=== PATIENT | female | born 1980 | race Caucasian/White ===

== ENCOUNTER → 2023-11-19 | Outpatient (CLI) | payer BC ==
--- NOTE | 2023-12-01 09:57 | MM ---
Reason for Exam: Screening (asymptomatic). Last mammogram was performed 2 year(s) and 2 month(s) ago. Patient History: Menarche at age 13. First Full-Term at age 28. Patient has history of breast feeding. Patient used Hormonal Contraceptives for 15 years. Maternal grandmother had breast cancer at or over age 50. Last menstrual period: 11/05/2023 Risk Values: Olga 5 year model risk: 0.8%. NCI Lifetime model risk: 10.8%. Prior Study Comparison: 09/13/2021 Bilateral Screening Mammogram, [facility]. Tissue Density: The breasts are extremely dense, which lowers the sensitivity of mammography. Findings: Analyzed By CAD. The pattern is symmetrical. No significant interval change. No suspicious groups of microcalcifications, spiculated or lobular masses, architectural distortion or other secondary signs of malignancy are mammographically apparent. Overall Assessment: Benign, BI-RAD 2 Management: Screening Mammogram of both breasts in 1 year. A negative mammogram report should not preclude additional follow up of suspicious palpable abnormalities. Patient should continue monthly self breast exam. A clinical breast exam by your physician is recommended on an annual basis and results should be correlated with mammographic findings. Note on Olga scores and lifetime risk: 1. A Olga score greater than 3% is considered moderate risk. If this is the case, consider specialist referral to assess eligibility for a risk reducing agent. 2. If overall lifetime risk for the development of breast cancer is 20% or higher, the patient may qualify for future screening with alternating mammogram and breast MRI. [facility], , 12/01/2023 9:54 AM. Electronically signed and approved by: Jabari Molina D.O. Radiologis
== END | disposition home or self-care (01) ==
LOC: RADMAMWWP 11:34
PROVIDERS: ATTEND Family Medicine
DX: Z12.31 Encounter for screening mammogram for malignant neoplasm of breast
CPT/HCPCS: 77063; 77067

== ENCOUNTER 2023-12-02 20:24 | Emergency (ER) | payer BC ==
[2023-12-02 20:32] VITALS: BP 117/80; PULSE 74; RESP 16; TEMP 97.8
[2023-12-02 21:07] LABS: Basophils % (A) 1 %; Eosinophils # (A) 0.3 k/uL (0-0.7); Eosinophils % (A) 4 %; HCT 38.9 % (34.0-46.0); Lymphocytes # (A) 2.3 k/uL (1.0-4.8); Lymphocytes % (A) 35 %; MCH 32.1 pg (25.0-35.0); MCHC 33.4 g/dL (31.0-37.0); Mean Platelet Volume 6.7; Monocytes # (A) 0.4 k/uL (0-1.0); Monocytes % (A) 7 %; Neutrophils # (A) 3.5 k/uL (1.3-7.7); Neutrophils % (A) 53 %; Platelet Count 317 k/uL (150-450); RBC 4.05 m/uL (3.80-5.40); RDW 12.1 % (11.5-15.5); WBC 6.7 k/uL (3.8-10.6)
--- NOTE | 2023-12-02 21:07 | ED ---
General Adult HPI - General Source: patient Mode of arrival: wheelchair Limitations: no limitations <Agnieszka Cruz - Last Filed: 12/02/23 21:07> <Arabella Cohn - Last Filed: 12/03/23 07:23> - General Chief complaint: Neuro Symptoms/Deficit Stated complaint: Numbness,Vision,Dizziness Time Seen by Provider: 12/02/23 21:07 - History of Present Illness Initial comments: Quick note: 43-year-old female presenting with chief complaint of neck pain. Today she was having some numbness and tingling in the bilateral hands feet and face. (Agnieszka Cruz) Patient is a 43-year-old female presenting today for tingling in her hands and feet, right sided neck pain and ear fullness. The patient states that she has had pounding in her right ear that has been on and off going for the last 2 to 3 months. She has seen an ENT and was told to stop drinking less caffeine. Patient states that she did this and this has not changed her symptoms. Over the last few weeks she has noted right sided neck pain. She has seen a chiropractor for this who has done adjustments which patient states momentarily helped the pain however it is persistent. She is attempted a leftover Se[place] without improvement in pain. Additionally attempted home muscle relaxant with brief improvement. 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 States that the symptoms have improved however she has had persistent right sided neck pain. She denies sudden vision change or vision loss, slurred speech, facial numbness, focal weakness or numbness of her extremities, headache, chest pain or shortness of breath, nausea or vomiting. (Arabella Cohn) - Related Data Previous Rx's Medication Instructions Recorded Meclizine [Antivert] 25 mg PO Q8HR PRN #15 tab 12/03/23 tiZANidine HCL [Zanaflex] 2 mg PO Q8HR PRN 3 Days #15 capsule 12/03/23 Allergies Allergy/AdvReac Type Severity Reaction Status Date / Time No Known Allergies Allergy Verified 12/02/23 20:32 Review of Systems ROS Other: All systems not noted in ROS Statement are negative. <Agnieszka Cruz - Last Filed: 12/02/23 21:07> Constitutional: Denies: fever, chills Eyes: Denies: vision change ENT: Reports: other (ear fullness/pounding). Denies: ear pain, throat pain Respiratory: Denies: dyspnea Cardiovascular: Denies: chest pain Gastrointestinal: Denies: abdominal pain, nausea, vomiting Neurological: Reports: paresthesias. Denies: headache, weakness, numbness, vertigo <Arabella - Last Filed: 12/03/23 07:23> ROS Statement: Those systems with pertinent positive or pertinent negative responses have been documented in the HPI. Past Medical History Past Medical History: No Reported History Past Surgical History: No Surgical Hx Reported Past Psychological History: No Psychological Hx Reported Smoking Status: Former smoker, Vaper Past Alcohol Use History: Occasional Past Drug Use History: None Reported <Agnieszka Cruz - Last Filed: 12/02/23 21:07> General Exam Limitations: no limitations <Agnieszka Cruz - Last Filed: 12/02/23 21:07> <Arabella Cohn - Last Filed: 12/03/23 07:23> - General Exam Comments Initial Comments: Visual Physical Exam Vital signs reviewed General: Well-appearing, nontoxic, no acute distress. Head: Normocephalic, atraumatic Eyes: PERRLA, EOMI ENT: Airway patent Chest: Nonlabored breathing Skin: No visual rash, normal skin tone Neuro: Alert and oriented 3 Musculoskeletal: No gross abnormalities (Agnieszka Cruz) PE: CONSTITUTIONAL: No apparent distress, well appearing SKIN: Warm, dry, no jaundice, hives or petechiae EYES: Pupils are equally round, extraocular movements intact without nystagmus, clear conjunctiva, non-icteric sclera HENT: Normocephalic, atraumatic, moist mucus membranes, oropharynx clear without exudates NECK: , Full range of motion, normal appearance, TTP along right lateral neck, no midline TTP, positive helen's sign PULMONARY: Clear to auscultation without wheezes, rhonchi, or rales, normal excursion, no accessory muscle use and no stridor CARDIOVASCULAR: Regular rate, rhythm, normal S1 and S2. No appreciated murmurs, rubs or gallops. Strong radial pulses with intact distal perfusion. No lower extremity edema, no carotid bruits GASTROINTESTINAL: Soft, non-tender, non-distended, no palpable masses, no rebound or guarding. No hepatosplenomegaly MUSCULOSKELETAL: Extremities have no gross deformity, no edema, redness, or swelling. No calf swelling NEUROLOGIC:_a/o x 3, GCS 15, normal mentation and speech. Moves all extremities x 4 without motor or sensory deficit; cranial nerves: II (visual calvert without defects), III, IV and (extraocular movements are intact, pupils are equal with normal reaction to light), V (intact facial sensation and jaw opening), VII (no facial droop), IX and X (normal palate movement, midline uvula, normal voice), XI (symmetrical shoulder shrug and lateral head rotation against resistance), XII (midline tongue protrusion). Motor strength is 5/5 in all extremities. No abnormal movements. Normal muscle tone. Sensation to light touch is intact bilaterally. No cerebellar signs ([id number]-[id number], hvyu-[id number], normal) PSYCHIATRIC:_normal mood and affect, thought process is clear and linear (Arabella Cohn) Course Vital Signs 12/02/23 20:28 Temperature 97.8 F Pulse Rate 74 Respiratory 16 Rate Blood Pressure 117/80 O2 Sat by Pulse 100 Oximetry EKG Findings - EKG Comments: EKG Findings:: Sinus rhythm, rate 75 bpm, SC interval 137 ms, QRS duration 104 ms, QT/QTc 355/3 4 ms, normal axis, P waves appear inverted in lead II however expect this is secondary to lead placement, no ST elevations or depressions, no arrhythmia <Arabella Cohn - Last Filed: 12/03/23 07:23> Medical Decision Making <Agnieszka Cruz - Last Filed: 12/02/23 21:07> - Lab Data Result diagrams: 12/02/23 20:55 12/02/23 20:55 <Arabella Cohn - Last Filed: 12/03/23 07:23> - Medical Decision Making I performed the quick note portion of this visit, electronically signed Agnieszka Cruz PA-C (Agnieszka Cruz) Was pt. sent in by a medical professional or institution ([facility], TRANSITION LEAD, urgent care, hospital, or fci...) When possible be specific @ -No Did you speak to anyone other than the patient for history (EMS, parent, family, police, friend...)? What history was obtained from this source @ -No Did you review nursing and triage notes (agree or disagree)? Why? @Reviewed nursing and triage notes, disagree, patient states that is here for his bilateral hand and feet tingling that has improved, 2 weeks right neck pain pounding in the right ear for 2 to 3 months; chronic vision changes, no acute changes in vision or visual field loss Were old charts reviewed (outside hosp., previous admission, EMS record, old EKG, old radiological studies, urgent care reports/EKG's, fci records)? Report findings @Reviewed old charts, however w/ exception of mammogram, no old charts to review Differential Diagnosis (chest pain, altered mental status, abdominal pain women, abdominal pain men, vaginal bleeding, weakness, fever, dyspnea, syncope, headache, dizziness, GI bleed, back pain, seizure, CVA, palpatations, mental health, musculoskeletal)? Differential diagnosis remains broad however top considerations include BPPV Mnire's disease, otitis media, acoustic neuroma, vertebrobasilar insufficiency vertebral or carotid artery dissection,, hypovolemia, arrhythmia this is not all-inclusive list EKG interpreted by me (3pts min.). @ -As above X-rays interpreted by me (1pt min.). @ -Chest x-ray shows no cardiomegaly or consolidations CT interpreted by me (1pt min.). @ -CT brain and CTA showed no evidence of hemorrhage, mass effect dissection or occlusion U/S interpreted by me (1pt. min.). @ -None done What testing was considered but not performed or refused? (CT, X-rays, U/S, labs)? Why? @ -None What meds were considered but not given or refused? Why? @ -None Did you discuss the management of the patient with other professionals (professionals i.e. , PA, TRANSITION LEAD, lab, RT, psych nurse, social services, curtain cutter, teacher, guest relations officer, case management manager)? Give summary @ -No Was smoking cessation discussed for >3mins.? @ -No Was critical care preformed (if so, how long)? @ -No Were there social determinants of health that impacted care today? How? (Homelessness, low income, unemployed, alcoholism, drug addiction, transportation, low edu. Level, literacy, decrease access to med. care, residential, r ehab)? @ -No Was there de-escalation of care discussed even if they declined (Discuss DNR or withdrawal of care, Hospice)? @ -No What co-morbidities impacted this encounter? (DM, HTN, Smoking, COPD, CAD, Cancer, CVA, ARF, Chemo, Hep., AIDS, mental health diagnosis, sleep apnea, morbid obesity)? @ -None Was patient admitted / discharged? Hospital course, mention meds given and route, prescriptions, significant lab abnormalities, going to OR and other pertinent info. @ -Hospital course discharged- Patient is a 43-year-old female no significant medical history presenting today for tingling in her hands and feet, lightheadedness right-sided neck pain and ear pounding. Unclear if symptoms are related. On assessment patient well appearing and in NAD. HEENT exam shows pearly francis tympanic membrane in the right ear without effusion or bulging TM or masses. Neurologic exam shows no focal neurologic deficits or nystagmus. Neck exam shows no midline TTP, positive helen's test. Remainder of exam reassuring. Given right neck pain lightheadedness/dizziness and ear symptoms CTA will be obtained to ensure no evidence of dissection in addition to CT brain to ensure no evidence of obvious mass or hemorrhage. I suspect patient's neck pain 2/2 cervical radiculopathy. Will also given meclizine, IV fluids. Labs and imaging reviewed. Urinalysis noted Small leukocyte esterase, negative nitrates, 7 white blood cells 6 squamous cells rare bacteria suspect contaminated specimen and do not suspect this is cause of patient's symptoms today. CTA did comment on moderate canal stenosis at C5/6 and right thyroid nodule. Otherwise, Grossly within normal limits. Abnormal values not concerning for acute pathology related to presenting complaint. On reassessment patient states that she has felt better than she has in a long time however her neck pain has worsened. Updated her to CT findings including thyroid nodule. Will try Toradol and Zanaflex. Plan for discharge. Patient will be discharged with meclizine and Zanaflex. She was instructed to follow-up with ENT and neurology regarding ear fullness sensation and symptoms today as well as orthopedics regarding Neck pain and PCP regarding f/u US for thyroid nodule. Patient agreeable with plan. In my medical judgment there is currently no evidence of an immediate life- threatening or surgical condition. Discharge is therefore indicated at this time. Discharge treatment instructions, follow up instructions, and appropriate em ergency department return precautions were discussed with the patient and/or medical decision maker. Patient and/or medical decision maker expressed understanding of and agreed with the treatment plan, follow up instructions, and emergency department return precaution. All patient's and/or medical decision maker's questions were answered. Undiagnosed new problem with uncertain prognosis? @ -No Drug Therapy requiring intensive monitoring for toxicity (Heparin, Nitro, Insulin, Cardizem)? @ -No Were any procedures done? @ -No Diagnosis/symptom? @ -Neck pain, dizziness, thyroid nodule Acute, or Chronic, or Acute on Chronic? @ -Acute Uncomplicated (without systemic symptoms) or Complicated (systemic symptoms)? @ complicated Side effects of treatment? @ -No Exacerbation, Progression, or Severe Exacerbation? @ -No Poses a threat to life or bodily function? How? (Chest pain, [place], [place], pneumonia, PE, COPD, DKA, ARF, appy, cholecystitis, CVA, Diverticulitis, Homicidal, Suicidal, threat to staff... and all critical care pts) @ -No (,Arabella) - Lab Data Lab Results 12/02/23 12/02/23 12/02/23 Range/Units 20:55 20:55 20:55 WBC 6.7 (3.8-10.6) k/uL RBC 4.05 (3.80-5.40) m/uL Hgb 13.0 (11.4-16.0) gm/dL Hct 38.9 (34.0-46.0) % MCV 96.0 (80.0-100.0) fL MCH 32.1 (25.0-35.0) pg MCHC 33.4 (31.0-37.0) g/dL RDW 12.1 (11.5-15.5) % Plt Count 317 (150-450) k/uL MPV 6.7 Neutrophils % 53 % Lymphocytes % 35 % Monocytes % 7 % Eosinophils % 4 % Basophils % 1 % Neutrophils # 3.5 (1.3-7.7) k/uL Lymphocytes # 2.3 (1.0-4.8) k/uL Monocytes # 0.4 (0-1.0) k/uL Eosinophils # 0.3 (0-0.7) k/uL Basophils # 0.0 (0-0.2) k/uL PT 10.2 (10.0-12.5) sec INR 0.9 (<1.2) APTT 25.7 (22.0-30.0) sec Sodium 137 (137-145) mmol/L Potassium 3.9 (3.5-5.1) mmol/L Chloride 104 (98-107) mmol/L Carbon Dioxide 27 (22-30) mmol/L Anion Gap 6 mmol/L BUN 13 (7-17) mg/dL Creatinine 0.85 (0.52-1.04) mg/dL Est GFR (CKD-EPI)AfAm >90 (>60 ml/min/1.73 sqM) Est GFR (CKD-EPI)NonAf 85 (>60 ml/min/1.73 sqM) Glucose 93 (74-99) mg/dL Calcium 9.3 (8.4-10.2) mg/dL Total Bilirubin 0.3 (0.2-1.3) mg/dL AST 25 (14-36) U/L ALT 14 (4-34) U/L Alkaline Phosphatase 44 (38-126) U/L Creatine Kinase 49 (30-135) U/L Troponin I (0.000-0.034) ng/mL Total Protein 7.0 (6.3-8.2) g/dL Albumin 4.6 (3.5-5.0) g/dL Urine Color Urine Appearance (Clear) Urine pH (5.0-8.0) Ur Specific [place] (1.001-1.035) Urine Protein (Negative) Urine Glucose (UA) (Negative) Urine Ketones (Negative) Urine Blood (Negative) Urine Nitrite (Negative) Urine Bilirubin (Negative) Urine Urobilinogen (<2.0) mg/dL Ur Leukocyte Esterase (Negative) Urine RBC (0-5) /hpf Urine WBC (0-5) /hpf Ur Squamous Epith Cells (0-4) /hpf Urine Bacteria (None) /hpf Urine Mucus (None) /hpf 12/02/23 12/02/23 Range/Units 20:55 21:41 WBC (3.8-10.6) k/uL RBC (3.80-5.40) m/uL Hgb (11.4-16.0) gm/dL Hct (34.0-46.0) % MCV (80.0-100.0) fL MCH (25.0-35.0) pg MCHC (31.0-37.0) g/dL RDW (11.5-15.5) % Plt Count (150-450) k/uL MPV Neutrophils % % Lymphocytes % % Monocytes % % Eosinophils % % Basophils % % Neutrophils # (1.3-7.7) k/uL Lymphocytes # (1.0-4.8) k/uL Monocytes # (0-1.0) k/uL Eosinophils # (0-0.7) k/uL Basophils # (0-0.2) k/uL PT (10.0-12.5) sec INR (<1.2) APTT (22.0-30.0) sec Sodium (137-145) mmol/L Potassium (3.5-5.1) mmol/L Chloride (98-107) mmol/L Carbon Dioxide (22-30) mmol/L Anion Gap mmol/L BUN (7-17) mg/dL Creatinine (0.52-1.04) mg/dL Est GFR (CKD-EPI)AfAm (>60 ml/min/1.73 sqM) Est GFR (CKD-EPI)NonAf (>60 ml/min/1.73 sqM) Glucose (74-99) mg/dL Calcium (8.4-10.2) mg/dL Total Bilirubin (0.2-1.3) mg/dL AST (14-36) U/L ALT (4-34) U/L Alkaline Phosphatase (38-126) U/L Creatine Kinase (30-135) U/L Troponin I <0.012 (0.000-0.034) ng/mL Total Protein (6.3-8.2) g/dL Albumin (3.5-5.0) g/dL Urine Color Yellow Urine Appearance Cloudy H (Clear) Urine pH 5.0 (5.0-8.0) Ur Specific [place] 1.016 (1.001-1.035) Urine Protein Negative (Negative) Urine Glucose (UA) Negative (Negative) Urine Ketones Negative (Negative) Urine Blood Negative (Negative) Urine Nitrite Negative (Negative) Urine Bilirubin Negative (Negative) Urine Urobilinogen <2.0 (<2.0) mg/dL Ur Leukocyte Esterase Small H (Negative) Urine RBC 2 (0-5) /hpf Urine WBC 7 H (0-5) /hpf Ur Squamous Epith Cells 6 H (0-4) /hpf Urine Bacteria Rare H (None) /hpf Urine Mucus Rare H (None) /hpf Disposition <Agnieszka Cruz - Last Filed: 12/02/23 21:07> Is patient prescribed a controlled substance at d/c from ED?: No <Arabella - Last Filed: 12/03/23 07:23> Clinical Impression: Neck pain, Thyroid nodule, Sensation of fullness in right ear, Dizziness Disposition: HOME SELF-CARE Condition: Good Instructions (If sedation given, give patient instructions): Meniere Disease (ED), Cervical Radiculopathy (ED), Dizziness (ED) Additional Instructions: Every disease is a spectrum and a small chance still exists that a serious condition could develop, for this reason, please monitor yourself closely for new, changing or worsening symptoms, symptoms that do not improve in the next 48 to 72 hours with prescribed treatments, changes in vision, slurred speech, nu mbness or weakness in your extremities, fever, inability to tolerate/keep down fluids or your medications, inability to follow up with outpatient providers as instructed and should you experience these symptoms or should you have any further concerns for your wellbeing please return to the ED or call 911 immediately. Your pain can be treated with ibuprofen and acetaminophen. You can take up to 4 00-600 mg of ibuprofen (Advil, Motrin) 3 times daily (every 8 hours) but can also use lower doses if this relieves your pain. Some people prefer naproxen (Aleve, Naprosyn) which can be taken in doses of 500 mg up to twice a day. Do not take both of these medicines together, and do not combine either with ketorolac (Toradol), meloxicam (Mobic), or indomethacin (Tivorbex). Some people can develop stomach discomfort with higher doses of either ibuprofen or naproxen, if this develops decrease your dose or stop taking it. If you need to take this dose daily for more than a week, please schedule an appointment for re-evaluation with your PCP. Please take these medications with food. You can take up to 1000 mg of acetaminophen (Tylenol) every 6 hours. Be careful as this is included in some medicines like Nyquil, Seagrove, Percocet, Vicodin, STANBACK, Goody's Powders, and Excedrin. You can also use lidocaine patches for topical pain. You can purchase 4% patches over the counter at most drug stores. These can be helpful for pain from your muscles or bones. Please follow up with orthopedics regarding neck pain. Please follow up with your PCP regarding thyroid nodule. Please follow-up with neurology and ENT regarding ear fullness/pounding PLEASE call your primary care physician as soon as possible to arrange / discuss plan for followup appointment. Appointment in the next 1-3 days is strongly encouraged if possible. PLEASE let us know here before you leave if there is anything further we can do to be of any assistance. Take care and feel Better! Prescriptions: Meclizine [Antivert] 25 mg PO Q8HR PRN #15 tab PRN Reason: Vertigo tiZANidine HCL [Zanaflex] 2 mg PO Q8HR PRN 3 Days #15 capsule PRN Reason: Muscle Spasm Referrals: David Edward MD [Primary Care Provider] - 1-2 days Matt Michelle MD [Medical Doctor] - 1-2 days Jose Martinez MD [STAFF PHYSICIAN] - 1-2 days
[2023-12-02 21:14] LABS: ALT 14 U/L (4-34); AST 25 U/L (14-36); African American GFR (CKD) >90 (>60 ml/min/1.73 sqM); Albumin 4.6 g/dL (3.5-5.0); Alkaline Phosphatase 44 U/L (38-126); Anion Gap 6 mmol/L; Blood Urea Nitrogen 13 mg/dL (7-17); Calcium 9.3 mg/dL (8.4-10.2); Carbon Dioxide 27 mmol/L (22-30); Chloride 104 mmol/L (98-107); Creatine Kinase 49 U/L (30-135); Glucose 93 mg/dL (74-99); INR 0.9 (<1.2); Non-African American GFR(CKD) 85 (>60 ml/min/1.73 sqM); Partial Thromboplastin Time 25.7 sec (22.0-30.0); Potassium 3.9 mmol/L (3.5-5.1); Prothrombin Time 10.2 sec (10.0-12.5); Sodium 137 mmol/L (137-145); Total Bilirubin 0.3 mg/dL (0.2-1.3)
--- NOTE | 2023-12-02 21:35 | XR ---
EXAMINATION TYPE: XR chest 2V DATE OF EXAM: 12/02/2023 9:01 PM CLINICAL INDICATION: Female, 43 years old with history of altered mental status; [facility] COMPARISON: None TECHNIQUE: XR chest 2V Frontal view of the chest. FINDINGS: Lungs/Pleura: There is no evidence of pleural effusion, focal consolidation, or pneumothorax. Pulmonary vascularity: Unremarkable. Heart/mediastinum: Cardiomediastinal silhouette is unremarkable. Musculoskeletal: No acute osseous pathology. IMPRESSION: No acute cardiopulmonary disease/process. [facility], Workstation: [id number], 12/02/2023 9:32 PM
[2023-12-02 22:15] LABS: Appearance,Urine Cloudy (Clear); Bacteria,Urine Rare /hpf; Bilirubin,Urine Negative (Negative); Blood,Urine Negative (Negative); Color,Urine Yellow; Glucose,Urine (UA) Negative (Negative); Ketones,Urine Negative (Negative); Leukocyte Esterase,Urine Small (Negative); Mucus,Urine Rare /hpf; Nitrite,Urine Negative (Negative); Protein,Urine Negative (Negative); RBC,Urine 2 /hpf (0-5); Specific Gravity,Urine 1.016 (1.001-1.035); Squamous Epithelial Cell,Urine 6 /hpf (0-4); Urobilinogen,Urine <2.0 mg/dL (<2.0); WBC,Urine 7 /hpf (0-5)
[2023-12-02] MEDS: SODIUM CHLORIDE 0.9% 1,000 ML IV ONE (22:35)
[2023-12-02] MEDS: MECLIZINE 12.5 MG TAB PO STA (22:36)
--- NOTE | 2023-12-02 22:59 | CT ---
EXAM: CT Head Without Intravenous Contrast CLINICAL HISTORY: ITS.REASON CT Reason: right ear fullness, R. neck pain, dizziness TECHNIQUE: Axial computed tomography images of the head/brain without intravenous contrast. CTDI is 48.8 mGy and DLP is 1108 mGy-cm. This CT exam was performed using one or more of the following dose reduction techniques: automated exposure control, adjustment of the mA and/or kV according to patient size, and/or use of iterative reconstruction technique. COMPARISON: No relevant prior studies available. FINDINGS: Brain: The territorial francis-white matter differentiation is maintained throughout. No acute intracranial hemorrhage. No midline shift or mass effect. Ventricles: The ventricles and sulci are commensurate with age. Bones/joints: Unremarkable. No acute fracture. Soft tissues: Unremarkable. Sinuses: Unremarkable as visualized. No acute sinusitis. Mastoid air cells: Unremarkable as visualized. No mastoid effusion. IMPRESSION: No acute intracranial hemorrhage. No midline shift or mass effect.
--- NOTE | 2023-12-03 00:03 | CT ---
EXAM: CT Angiography Head With Intravenous Contrast CLINICAL HISTORY: ITS.REASON CT Reason: R. neck pain, R. ear fullness, dizzy, vert art dis TECHNIQUE: Axial computed tomographic angiography images of the head with intravenous contrast. CTDI is 14.7 mGy and DLP is 448.2 mGy-cm. This CT exam was performed using one or more of the following dose reduction techniques: automated exposure control, adjustment of the mA and/or kV according to patient size, and/or use of iterative reconstruction technique. MIP reconstructed images were created and reviewed. COMPARISON: No relevant prior studies available. FINDINGS: The dural venous sinuses are patent. There is a small tangle of vessels within the medial right parietal lobe. Right internal carotid artery: No acute findings. Intracranial segment is patent with no significant stenosis. No aneurysm. Right anterior cerebral artery: Unremarkable. No occlusion or significant stenosis. No aneurysm. Right middle cerebral artery: Unremarkable. No occlusion or significant stenosis. No aneurysm. Right posterior cerebral artery: Unremarkable. No occlusion or significant stenosis. No aneurysm. Right vertebral artery: Unremarkable as visualized. Left internal carotid artery: No acute findings. Intracranial segment is patent with no significant stenosis. No aneurysm. Left anterior cerebral artery: Unremarkable. No occlusion or significant stenosis. No aneurysm. Left middle cerebral artery: Unremarkable. No occlusion or significant stenosis. No aneurysm. Left posterior cerebral artery: Unremarkable. No occlusion or significant stenosis. No aneurysm. Left vertebral artery: Unremarkable as visualized. Basilar artery: Unremarkable. No occlusion or significant stenosis. No aneurysm. IMPRESSION: There is a small tingle of vessels within the right parietal lobe concerning for a vascular malformation. EXAM: CT Angiography Neck With Intravenous Contrast CLINICAL HISTORY: ITS.REASON CT Reason: R. neck pain, R. ear fullness, dizzy, vert art dis TECHNIQUE: Routine carotid CT angiography protocol was performed with intravenous contrast. NASCET criteria using the distal ICAs for comparison were used for evaluation of stenoses. CTDI is 14.4 mGy and DLP is 448.2 mGy-cm. This CT exam was performed using one or more of the following dose reduction techniques: automated exposure control, adjustment of the mA and/or kV according to patient size, and/or use of iterative reconstruction technique. MIP reconstructed images were created and reviewed. COMPARISON: None. FINDINGS: VASCULATURE: Right common carotid artery: Unremarkable. No occlusion or significant stenosis. No dissection. Right internal carotid artery: Unremarkable. Extracranial segment is patent with no occlusion or significant stenosis. No dissection. Right external carotid artery: Unremarkable. No occlusion. Right vertebral artery: Unremarkable. No occlusion or significant stenosis. No dissection. Left common carotid artery: Unremarkable. No occlusion or significant stenosis. No dissection. Left internal carotid artery: Unremarkable. Extracranial segment is patent with no occlusion or significant stenosis. No dissection. Left external carotid artery: Unremarkable. No occlusion. Left vertebral artery: Unremarkable. No occlusion or significant stenosis. No dissection. NECK: Bones/joints: There is moderate spinal canal stenosis at C5-6. No acute fracture. Soft tissues: Moderate size right thyroid nodule. Lung apices: Clear. CAROTID STENOSIS REFERENCE USING NASCET CRITERIA: % ICA stenosis = (1 - narrowest ICA diameter/diameter of distal cervical ICA) x 100. Mild - <50% stenosis. Moderate - 50-69% stenosis. Severe - 70-94% stenosis. Near occlusion - 95-99% stenosis. Occluded - 100% stenosis. IMPRESSION: Negative CTA neck.
[2023-12-03] MEDS: KETOROLAC 15 MG/ML 1 ML VIAL IVP STA (00:52)
[2023-12-03] MEDS: tiZANidine 4 MG TAB PO STA (00:53)
== END 2023-12-03 01:12 | disposition home or self-care (01) ==
LOC: EC 20:24
CPT/HCPCS: 36415; 70450; 70496; 70498; 71046; 80053; 81001; 82550; 84484; 85025; 85610; 85730; 93005; 96361; 96374; 99285

== ENCOUNTER → 2023-12-17 | Outpatient (CLI) | payer BC ==
--- NOTE | 2023-12-19 11:45 | US ---
EXAMINATION TYPE: US thyroid st tissue head/neck DATE OF EXAM: 12/17/2023 COMPARISON: CTA head neck 12/02/2023 CLINICAL INDICATION: Female, 43 years old with history of E04.1 THYROID NODULE; CT showed thyroid nod ule TECHNIQUE: Grayscale and color Doppler imaging of the thyroid gland. FINDINGS: GLAND SIZE: Right Lobe: 4.8 x 3.1 x 1.5 cm Overall Parenchyma: homogeneous Left Lobe: 4.5 x 1.6 x 1.4 cm Overall Parenchyma: homogeneous Isthmus Thickness: 0.3 cm NODULES RIGHT: # of nodules measured on right: 1 1. 4.1 X 2.4 x 1.6 cm, mid lateral, mixed cystic and solid, hypoechoic nodule, which is wider than tall, with smooth margins, without echogenic foci. TR 3. Prior size: No prior LEFT: # of nodules measured on left: 0 ISTHMUS: # of nodules measured in the isthmus: 0 Bilateral neck scanned, no evidence of lymphadenopathy. IMPRESSION: Right thyroid lobe 4.1 cm TR 3 nodule. Fine-needle aspiration is recommended. [facility] Sherly Kam, , 12/19/2023 11:43 AM
== END | disposition home or self-care (01) ==
LOC: RADUSWWP 15:59
PROVIDERS: ATTEND Family Medicine
DX: E04.1 Nontoxic single thyroid nodule (principal)
CPT/HCPCS: 76536

== ENCOUNTER → 2024-01-03 | Outpatient (CLI) | payer BC ==
[2024-01-03 16:29] LABS: T4, Free (Free Thyroxine) 1.23 ng/dL (0.80-1.80)
[2024-01-03 17:00] LABS: Thyroid Peroxidase Antibodies 10.4 U/mL (0.0-33.0)
== END | disposition home or self-care (01) ==
LOC: LABWHC1 08:30
PROVIDERS: ATTEND Internal Medicine Endocrinology, Diabetes & Metabolism
DX: E04.1 Nontoxic single thyroid nodule (principal)
CPT/HCPCS: 36415; 84439; 84443; 84480; 86376

== ENCOUNTER → 2024-05-04 | Outpatient (CLI) | payer BC ==
[2024-05-04 16:24] LABS: T4, Free (Free Thyroxine) 1.09 ng/dL (0.80-1.80)
== END | disposition home or self-care (01) ==
LOC: LABWHC1 08:05
PROVIDERS: ATTEND Internal Medicine Endocrinology, Diabetes & Metabolism
DX: E04.1 Nontoxic single thyroid nodule (principal)
CPT/HCPCS: 36415; 84439; 84443